=== PATIENT | female | born 1990 | race Caucasian/White ===

== ENCOUNTER 2019-05-03 19:38 | Emergency (ER) | payer OTHER ==
[2019-05-03 19:42] VITALS: TEMP 97.7; BMI 33.3
--- NOTE | 2019-05-03 19:44 | PDOC ---
Rapid Medical Evaluation Time Seen by Provider: 05/03/19 19:38 Medical Evaluation: Allergies Allergy/AdvReac Type Severity Reaction Status Date / Time No Known Drug Allergies Allergy Verified 12/26/18 04:45 05/03/19 19:39 Patient complaints of: ate chicken lettuce wrap and broke out in hives while in route to urgent care clinic, pt felt her throat closing up. Give epi im 1/r ago. now asymptomatic Patient on brief exam: speaking full sentences, no stridor/wheezing, no wheals Patient ordered for: none, observe ( 1st time given epi) Patient to proceed to the ED Discharge Disposition - Diagnosis Allergic reaction - Discharge Dispostion Disposition: AGAINST MEDICAL ADVICE Condition at time of disposition: Stable - Prescriptions Prescriptions: Diphenhydramine HCl [Benadryl -] 25 mg PO PRN #28 capsule Epinephrine [Epipen] 0.3 mg IJ PRN #1 auto.injct Loratadine [Claritin -] 10 mg PO DAILY #30 tablet predniSONE [Deltasone -] 40 mg PO DAILY 5 Days #5 tablet Ranitidine HCl [Zantac] 300 mg PO DAILY #30 tablet - [place] [facility] [place] [facility] [place] Group] - Patient Instructions Printed Discharge Instructions: DI for Anaphylaxis, DI for Adverse Drug Reaction -- Allergic Additional Instructions: You came into the ER after you experienced an allergic reaction. We gave you medications to help with the allergy. We advised you to stay in the ER for observation for 4 more hours but you said you have to leave to take care of your baby. We have explained the risks including worsening of your allergic reactions but you have decided to sign out from the emergency room against medical advice. Please make sure to schedule a follow up appointment with your primary care doctor in the next 24 to 48 hours to make sure you are getting better and being taken care of. Come back to the ER immediately if you experience any shortness of breath, throat - eye - lip - or tongue swelling, new rashes, or any other new or worsening concerns. Thank you for coming to the [facility] ER. We hope you feel better soon! Print Language: MALAWIAN - Post Discharge Activity
--- NOTE | 2019-05-03 20:00 | PDOC ---
History of Present Illness - General Chief Complaint: Allergic Reaction Stated Complaint: ALLERGIC REACTION Time Seen by Provider: 05/03/19 19:38 - History of Present Illness Initial Comments: 05/03/19 19:59 28-year-old female without comorbidities presents for evaluation after receiving epinephrine at an urgent care due to a meal which was new to her at a [place] restaurant. Past History - Past Medical History Allergies/Adverse Reactions: Allergies Allergy/AdvReac Type Severity Reaction Status Date / Time No Known Drug Allergies Allergy Verified 05/03/19 19:42 COPD: No - Suicide/Smoking/Psychosocial Hx Smoking History: Never smoked Review of Systems - Review of Systems Integumentary: Yes: Rash *Physical Exam - Vital Signs Last Vital Signs Temp Pulse Resp BP Pulse Ox 97.7 F 84 18 119/63 98 05/03/19 19:38 05/03/19 19:38 05/03/19 19:38 05/03/19 19:38 05/03/19 19:38 - Physical Exam Comments: 05/03/19 19:59 HEAD: NC/AT EYES: Conjuntiva clear Ears: Canals and TM's normal NOSE: No d/c THROAT: Moist mucous membrances, oral pharanx clear, uvula midline NECK: Supple without adenopathy CARDIAC: S1 S2 LUNGS: CTA Full and Equal breath sounds ABDOMEN: Soft NT ND MS: Full ROM in all joints without edema NEUROLOGIC: No gross sensory or motor deficits, NVID SKIN: Normal color and temperature no lesions resolving you to carry left upper extremity Medical Decision Making - Medical Decision Making 05/03/19 20:00 The receiving epinephrine intramuscularly, this patient needs to be on a monitored bed I will transfer her to the main emergency room. *DC/Admit/Observation/Transfer Diagnosis at time of Disposition: Allergic reaction - Referrals - Patient Instructions - Post Discharge Activity
[2019-05-03] MEDS ORDERED: FAMOTIDINE 20 MG/50 ML IVPB 20 MG/50 ML MG IVPB ONE (20:04)
[2019-05-03] MEDS: methylPREDNISolone NA SUCC 125 MG/2 ML VIAL IVPB ONE ×2 (20:19→20:20)
[2019-05-03] MEDS ORDERED: predniSONE 20 MG TABLET (UD) PO ONE (20:20)
[2019-05-03] MEDS ORDERED: LORATADINE 10 MG TABLET PO ONE (20:21)
[2019-05-03] MEDS ORDERED: RANITIDINE HCL 150 MG TABLET (FP) PO ONE (20:21)
--- NOTE | 2019-05-03 20:24 | PDOC ---
History of Present Illness - General Chief Complaint: Allergic Reaction Stated Complaint: ALLERGIC REACTION Time Seen by Provider: 05/03/19 19:38 History Source: Patient Exam Limitations: No Limitations - History of Present Illness Initial Comments: 28 yo obese f w no reported pmh presents to the ER after she experienced an allergic reaction earlier today. The patient was eating a chicken lettuce wrap at [facility] that had mushrooms, soy, water chestnut, chives, chicken, and a bunch of sauces at 4 pm. 5 minutes after she started eating her wrap she began experiencing diffuse itchiness on her arms, chest, back and legs. She states she had hives on her head, upper body, and arms. She also felt a tingling sensation in her throat and states she was short of breath. She waited at home for 2 hours hoping the sensations would subside but because she felt they were worsening the patient went to urgent care where she received epinephrine IM. Urgent care told the patient to proceed to the ER for observation after they administered Epi. EMS brought the patient to the ER and here she states she is asymptomatic. She denies any SOB, difficulty breathing, hives, other rashes, throat swelling, eye, lip, or tonuge swelling or any other complaints. The patient denies having any allergies to food or seasons. She states this has never happened to her before. She denies new soaps, detergents, or new outdoor exposures. PCP: Dr. Penn in [facility] PSH: None reported Social Hx: Denies smoking, drinking, or other substance usage Allergies: NKA, NKDA Past History - Past Medical History Allergies/Adverse Reactions: Allergies Allergy/AdvReac Type Severity Reaction Status Date / Time No Known Drug Allergies Allergy Verified 05/03/19 19:42 Home Medications: Ambulatory Orders Diphenhydramine HCl [Benadryl -] 25 mg PO PRN #28 capsule 05/03/19 Epinephrine [Epipen] 0.3 mg IJ PRN #1 auto.injct 05/03/19 Loratadine [Claritin -] 10 mg PO DAILY #30 tablet 05/03/19 Ranitidine HCl [Zantac] 300 mg PO DAILY #30 tablet 05/03/19 predniSONE [Deltasone -] 40 mg PO DAILY 5 Days #5 tablet 05/03/19 COPD: No - Suicide/Smoking/Psychosocial Hx Smoking History: Never smoked Review of Systems - Review of Systems Able to Perform ROS?: Yes Comments:: CONSTITUTIONAL: No fever, no chills, no fatigue EYES: No visual changes ENT: No ear pain, + sore throat CARDIOVASCULAR: No chest pain, no palpitations RESPIRATORY: No cough, + SOB GI: No abdominal pain, no nausea, no vomiting, no constipation, no diarrhea GENITOURINARY: No dysuria, no frequency, no hematuria MUSKULOSKELETAL: No backpain, no joint pain, no myalgias SKIN: + rash NEURO: No headache *Physical Exam - Vital Signs Last Vital Signs Temp Pulse Resp BP Pulse Ox 97.7 F 84 18 119/63 98 05/03/19 19:38 05/03/19 19:38 05/03/19 19:38 05/03/19 19:38 05/03/19 19:38 - Physical Exam Comments: CONSTITUTIONAL: Well-appearing; well-nourished; in no apparent distress HEAD: Normocephalic; atraumatic EYES: PERRL; EOM intact ENMT: External appears normal; normal oropharynx NECK: Supple; non-tender; no cervical lymphadenopathy CARD: Normal S1, S2; no murmurs, rubs, or gallops RESP: Normal chest excursion with respiration; breath sounds clear and equal bilaterally; no wheezes, rhonchi, or rales ABD: Soft, non-distended; non-tender; no palpable organomegaly, no palpable hernias EXT: Normal ROM in all four extremities; non-tender to palpation; distal pulses intact SKIN: Warm, dry, no rash NEURO: No focal neurological deficiencies. ED Treatment Course - LABORATORY CBC & Chemistry Diagram: 05/03/19 20:11 05/03/19 20:11 - Medications Given in the ED: ED Medications Discontinued Medications Generic Name Dose Route Start Last Admin Trade Name Freq PRN Reason Stop Dose Admin Diphenhydramine HCl 25 mg 05/03/19 20:04 05/03/19 20:19 Benadryl Injection - IVPB 05/03/19 20:05 Not Given ONCE ONE Famotidine/Sodium Chloride 20 mg in 50 mls @ 100 mls/hr 05/03/19 20:04 20:19 Pepcid 20 Mg Premixed Ivpb - IVPB 05/03/19 20:33 Not Given ONCE ONE Methylprednisolone Sodium Succinate 125 mg 05/03/19 20:04 05/03/19 20:20 Solu-Medrol - IVPB 05/03/19 20:05 Not Given ONCE ONE Medical Decision Making - Medical Decision Making 28 yo Obese F w no reported pmh or allergies presents to the ER from urgent care after experiencing a food allergic reaction where urgent care gave her Epi. patient is asymptomatic in ER and here for observation period after Epi VS: WNL DDx IBNLT: allergic reaction, less likely anaphylaxis vs angioedema. Plan: Labs, steroids, zantac, claritin, steroids, observation, re-assess. Dispo: Will send patient home after 4-6 hours is asymptomatic. Will also send scripts to her pharmacy for an epipen, steroids, benadryl, zantac and claritin. Patient has a 2 week old baby at home and states she cannot wait in the ED any longer. The patient states she wants to sign out AMA. - Will send meds to her pharmacy and sign her out AMA. *DC/Admit/Observation/Transfer Diagnosis at time of Disposition: Allergic reaction - Discharge Dispostion Disposition: AGAINST MEDICAL ADVICE Condition at time of disposition: Stable Decision to Admit order: No - Prescriptions Prescriptions: Diphenhydramine HCl [Benadryl -] 25 mg PO PRN #28 capsule Epinephrine [Epipen] 0.3 mg IJ PRN #1 auto.injct Loratadine [Claritin -] 10 mg PO DAILY #30 tablet predniSONE [Deltasone -] 40 mg PO DAILY 5 Days #5 tablet Ranitidine HCl [Zantac] 300 mg PO DAILY #30 tablet - Referrals Referrals: [facility] [place] [facility] [place] [Provider Group] - Patient Instructions Printed Discharge Instructions: DI for Anaphylaxis, DI for Adverse Drug Reaction -- Allergic Additional Instructions: You came into the ER after you experienced an allergic reaction. We gave you medications to help with the allergy. We advised you to stay in the ER for observation for 4 more hours but you said you have to leave to take care of your baby. We have explained the risks including worsening of your allergic reactions but you have decided to sign out from the emergency room against medical advice. Please make sure to schedule a follow up appointment with your primary care doctor in the next 24 to 48 hours to make sure you are getting better and being taken care of. Come back to the ER immediately if you experience any shortness of breath, throat - eye - lip - or tongue swelling, new rashes, or any other new or worsening concerns. Thank you for coming to the [facility] ER. We hope you feel better soon! Print Language: PORTUGUESE - Post Discharge Activity
[2019-05-03 20:27] LABS: BASO % 1.2 % (0-2.0); EOS % 2.1 % (0-4.5); HEMATOCRIT 41.8 % (32.4-45.2); HEMOGLOBIN 13.5 GM/dL (10.7-15.3); LYMPH % 49.8 % (8-40); MCH 23.7 pg (25.7-33.7); MCHC 32.4 g/dl (32.0-36.0); MEAN CELL VOLUME 73.3 fl (80-96); MEAN PLT VOLUME 9.3 fl (7.5-11.1); MONO % 6.9 % (3.8-10.2); PLATELET COUNT 363 K/MM3 (134-434); RDW 16.5 % (11.6-15.6); WHITE BLOOD COUNT 7.2 K/mm3 (4.0-10.0)
--- NOTE | 2019-05-03 20:42 | PDOC ---
Documentation entered by Smita Rangel SCRIBE, acting as scribe for Angelina Cruz DO. Angelina Cruz DO: This documentation has been prepared by the Claire sunshine Mackenzie, SCRIBE, under my direction and personally reviewed by me in its entirety. I confirm that the documentation accurately reflects all work , treatment, procedures, and medical decision making performed by me. Attending Attestation - Resident Resident Name: Everette Jaimes - ED Attending Attestation I have performed the following: I have examined & evaluated the patient, The case was reviewed & discussed with the resident, I agree w/resident's findings & plan - HPI HPI: The patient is a 28 year old female, with no significant PMH and no known allergies who presents to the emergency department with an allergic reaction. Patient reports shortly after eating a chicken wrap she felt itchy, her throat tightened, her tongue and face became swollen, she had trouble breathing, and a rash appeared on her chest. Urgent care delivered epinephrine [employer] CLERK and she has since been asymptomatic, and advised her to report to the ED for further observation. The patient denies headache and dizziness. Denies fever, chills, nausea, vomiting, diarrhea and constipation. Denies dysuria, frequency, urgency and hematuria. Allergies: NKA Past surgical history: None reported Social history: None reported 05/03/19 20:43 - Physicial Exam PE: Constitutional: Awake, alert, oriented. No acute distress. Head: Normocephalic. Atraumatic Eyes: PERRL. EOMI. Conjunctivae are not pale. ENT: No stridor. No tongue swelling. Mucous membranes are moist and intact. Posterior pharynx without exudates or erythema. Uvula midline. Neck: Supple. Full ROM. No lymphadenopathy. Cardiovascular: Regular rate. Regular rhythm. S1, S2 regular. Distal pulses are 2+ and symmetric. Pulmonary/Chest: No evidence of respiratory distress. Clear to auscultation bilaterally No wheezing, rales or rhonchi. Abdominal: Soft and non-distended. There is no tenderness. No rebound, guarding or rigidity. No organomegaly. No palpable masses. Good bowel sounds. Back: No CVA tenderness. Musculoskeletal: No edema. No cyanosis. No clubbing. Full range of motion in all extremities. No calf tenderness. Radial/pedal pulses are intact and 2+ bilaterally Skin: Skin is warm and dry. No petechiae. No purpura. No rashes. Neurological: Alert and oriented to person, place, and time. Cranial nerves II -XII are grossly intact. Normal speech. Strength is grossly symmetric. No sensory deficits. Psychiatric: Good eye contact. Normal interaction, affect and behavior. 05/03/19 20:43 - Medical Decision Making 05/03/19 20:39 I, Dr. Angelina Cruz, DO, attest that this document has been prepared under my direction and personally reviewed by me in its entirety. I further attest, that it accurately reflects all work, treatment, procedures and medical decision -making performed by me. 05/03/19 20:39 a/p: 28yo female with allergic reaction from Urgent Care after receiving epi at the urgent care -pt at chicken lettuce wraps at [facility] and 5 min after eating had itching, hives and a rash to her skin, and throat itching -no lip or tongue swelling -received epi im at 6:30 and sent from urgent care for observation in the ED -pt denies prior hx of allergic reactions -will add steroids, zantac, pt driving and no longer with symptoms - no benadryl at this time -no difficulty speaking, no wheezing, no stridor, tolerating secretions, no lip/ tongue/posterior pharynx swelling, no rash -lungs cta -will monitor given pt had epi for 6 hrs 05/03/19 20:42 pt is 2 weeks post delivery of 2 week old male - vaginal delivery, no complications 05/03/19 21:19 pt states she cannot stay any longer, has a 2 week old at home outpt meds sent to pharmacy pt states she wants to sign out ama discussed risks of signing out ama with epinephrine on board states she feels better and needs to leave, pt calling for an uber states she understands all risks of signing out ama pt ambulatory in the ED 05/03/19 21:20 Note: The patient insists on leaving the emergency dept and is signing out against medical advice. The patient understands the risks and complications that may result from the refusal of medical care and admission which includes and permanent disability. The patient has the mental capacity of understanding the risks of refusing care and is capable of making an informed decision. The patient was instructed to return to the emergency department should she change her mind regarding medical care or should her condition worsen. The patient signed the Against Medical Advice form.
[2019-05-03] MEDS ORDERED: predniSONE 20 MG TABLET (UD) ONE (20:47)
[2019-05-03] MEDS ORDERED: RANITIDINE HCL 150 MG TABLET (FP) ONE (20:47)
[2019-05-03 20:52] LABS: ALBUMIN 3.8 g/dl (3.4-5.0); BILIRUBIN,TOTAL 0.4 mg/dL (0.2-1); BLOOD UREA NITROGEN 15.5 mg/dL (7-18); CALCIUM 8.8 mg/dL (8.5-10.1); POTASSIUM 4.2 mmol/L (3.5-5.1); TOT PROT 7.6 g/dl (6.4-8.2)
[2019-05-03 21:12] VITALS: BP 109/72; PULSE 85
== END 2019-05-03 21:46 | disposition left against medical advice (07) ==
LOC: JER 19:38
PROC: 3E033GC Introduction of Other Therapeutic Substance into Peripheral Vein, Percutaneous Approach (ICD-10-PCS; principal; 2019-05-03)
PROC: 3E033GC Introduction of Other Therapeutic Substance into Peripheral Vein, Percutaneous Approach (ICD-10-PCS; 2019-05-03)
PROC: 3E0333Z Introduction of Anti-inflammatory into Peripheral Vein, Percutaneous Approach (ICD-10-PCS; 2019-05-03)
DX: T78.1XXA Other adverse food reactions, not elsewhere classified, initial encounter (principal); L50.0 Allergic urticaria; R07.0 Pain in throat; X58.XXXA Exposure to other specified factors, initial encounter
CPT/HCPCS: 36415; 80053; 85025; 96365; 96375; 99283-25

== ENCOUNTER 2019-10-11 16:11 | Emergency (ER) | payer OTHER ==
[2019-10-11 16:38] VITALS: BP 118/72; PULSE 96; TEMP 98; BMI 32.8
[2019-10-11] MEDS ORDERED: FLUORESCEIN NA 1 EA STRIP OD ONE (17:16)
[2019-10-11] MEDS ORDERED: TETRACAINE 0.5% HCL 0.6ML DROPPER.BOTTLE OD ONE (17:16)
[2019-10-11] MEDS ORDERED: FLUORESCEIN NA 1 EA STRIP ONE (17:17)
[2019-10-11] MEDS ORDERED: TETRACAINE 0.5% OPHTH SOLN 2 ML BOTTLE ONE (17:17)
--- NOTE | 2019-10-11 17:38 | PDOC ---
History of Present Illness - General Chief Complaint: Eye Problem Stated Complaint: PINK Time Seen by Provider: 10/11/19 16:45 History Source: Patient Exam Limitations: No Limitations Past History - Travel Traveled outside of the country in the last 30 days: No Close contact w/someone who was outside of country & ill: No - Past Medical History Allergies/Adverse Reactions: Allergies Allergy/AdvReac Type Severity Reaction Status Date / Time No Known Drug Allergies Allergy Verified 05/03/19 19:42 Home Medications: Ambulatory Orders Diphenhydramine HCl [Benadryl -] 25 mg PO PRN #28 capsule 05/03/19 Epinephrine [Epipen] 0.3 mg IJ PRN #1 auto.injct 05/03/19 Loratadine [Claritin -] 10 mg PO DAILY #30 tablet 05/03/19 Ranitidine HCl [Zantac] 300 mg PO DAILY #30 tablet 05/03/19 predniSONE [Deltasone -] 40 mg PO DAILY 5 Days #5 tablet 05/03/19 Prednisolone 0.12% Ophthalmic [Pred Mild 0.12% -] 1 drop OP BID #1 bottle Valacyclovir HCl [Valtrex -] 1,000 mg PO TID #21 tablet 10/11/19 COPD: No - Psycho Social/Smoking Cessation Hx Smoking History: Never smoked Have you smoked in the past 12 months: No Information on smoking cessation initiated: No Hx Alcohol Use: No Drug/Substance Use Hx: No Review of Systems - Review of Systems Able to Perform ROS?: Yes Comments:: 10/11/19 17:27 CONSTITUTIONAL: Absent: fever, chills, diaphoresis, generalized weakness, malaise, loss of appetite HEENT: Present: Eye redness, pain. Absent: rhinorrhea, nasal congestion, throat pain, throat swelling, difficulty swallowing, mouth swelling, ear pain, visual changes SKIN: Absent: rash, itching, pallor NEUROLOGIC: Absent: headache, focal weakness or paresthesias, dizziness, unsteady gait, seizure, mental status changes, bladder or bowel incontinence PSYCHIATRIC: Absent: anxiety, depression, suicidal or homicidal ideation, hallucinations. Is the patient limited Amharic proficient: No *Physical Exam - Vital Signs Last Vital Signs Temp Pulse Resp BP Pulse Ox 98.0 F 96 H 18 118/72 99 10/11/19 16:15 10/11/19 16:15 10/11/19 16:15 10/11/19 16:15 10/11/19 16:15 - Physical Exam Comments: 10/11/19 18:02 GENERAL: The patient is awake, alert, and fully oriented, in no acute distress. HEAD: Normal with no signs of trauma. EYES: Pupils equal, round and reactive to light, extraocular movements intact, sclera anicteric, left conjunctiva is erythematous laterally, vesicular lesion noted at the rim of the iris and conjunctiva. EXTREMITIES: Normal range of motion, no edema. NEUROLOGICAL: Normal speech, normal gait. PSYCH: Normal mood, normal affect. SKIN: Warm, Dry, normal turgor, no rashes or lesions noted. Medical Decision Making - Medical Decision Making 10/11/19 18:04 The patient is a 29-year-old female with past medical history of herpetic nicol/herpes simplex of the eye, presents to the ER today with left eye pain for 3 days. She states that she is noticed a bump under the eye. She states is very similar to when she had herpes simplex of the eye last year and was treated with Valtrex and ophthalmic steroids. She states that her eye is very painful and sensitive to light. She does report some blurred vision. Denies fevers, chills, rash, double vision. A/P: Her B simplex of the eye On exam patient with a vesicular lesion at the 5:00 area between the iris and sclera. Approximately 1 mm in size. Associated conjunctivitis Given history we will treat with Valtrex thousand milligrams 3 times daily and low-dose prednisolone ophthalmic drops. Instructed patient that she needs to see ophthalmology tomorrow. Failing to follow-up with ophthalmology could result in blindness. Patient is aware of the severity of her condition. 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 Discharge home I discussed the physical exam findings, ancillary test results and final diagnoses with the patient. I answered all of the patient's questions. The patient was satisfied with the care received and felt comfortable with the discharge plan and treatment plan. The Patient agrees to follow up with the primary care physician/specialist within 24-72 hours. Return precautions were given. Discharge - Discharge Information Problems reviewed: Yes Clinical Impression/Diagnosis: Herpes simplex of eye Condition: Stable Disposition: HOME - Admission No - Additional Discharge Information Prescriptions: Prednisolone 0.12% Ophthalmic [Pred Mild 0.12% -] 1 drop OP BID #1 bottle Valacyclovir HCl [Valtrex -] 1,000 mg PO TID #21 tablet - Follow up/Referral Referrals: Jose Saxena MD [Staff Physician] - - Patient Discharge Instructions Additional Instructions: You were evaluated for your eye pain today. It is most likely caused by the herpes simplex virus. Please take the Valtrex 3 times a day as directed. Take the entire dose. Use the eyedrops twice a day to help with the pain. Please follow-up with your asbestos siding installer tomorrow. It is very important that you follow-up with ophthalmology as untreated herpes simplex can lead to blindness. Return to the ER for worsening pain, visual changes, lightheadedness, headache, earache or if you have any changes in your symptoms. - Post Discharge Activity Work/Back to School Note: Back to Work
== END 2019-10-11 18:09 | disposition home or self-care (01) ==
LOC: JERFT 16:11
DX: B00.50 Herpesviral ocular disease, unspecified (principal)
CPT/HCPCS: 99281-25

== ENCOUNTER 2019-11-21 11:57 | Emergency (ER) | payer OTHER ==
[2019-11-21 12:01] VITALS: BP 148/90; PULSE 88; TEMP 98; BMI 30.9
[2019-11-21] MEDS ORDERED: TETRACAINE 0.5% HCL 0.6ML DROPPER.BOTTLE OD ONE (12:43)
[2019-11-21] MEDS ORDERED: FLUORESCEIN NA 1 EA STRIP OD ONE (12:43)
--- NOTE | 2019-11-21 12:48 | PDOC ---
History of Present Illness - General Chief Complaint: Eye Problem Stated Complaint: EYE PROBLEM Time Seen by Provider: 11/21/19 12:23 - History of Present Illness Initial Comments: 11/21/19 12:46 CHIEF COMPLAINT: eye pain/redness HISTORY OF PRESENT ILLNESS: 29 yo F with hx of herpetic nicol/herpes simplex of the eye presents to the ER today with left eye pain x 1 week. Patient was treated in this ED 2 months ago with Valtrex and opthalmic steroids and states she did f/u with ophthalmology and "was told the same thing", but the symptoms recurred 1 week ago. She states that her eye is very painful and sensitive to light. Denies fevers, chills, rash, double vision. No recent travel or sick contacts. PAST MEDICAL HISTORY: Denies past medical history FAMILY HISTORY: Denies SOCIAL HISTORY:Denies tobacco, alcohol, illicit drug use. SURGICAL HISTORY: Denies ALLERGIES: No known drug allergies REVIEW OF SYSTEMS General/Constitutional: Denies fever or chills. Denies weakness, weight change. HEENT: Redness to L eye x 1 week. Denies change in vision. Denies ear pain or discharge. Denies sore throat. Cardiovascular: Denies chest pain or shortness of breath. Respiratory: Denies cough, wheezing, or hemoptysis. Gastrointestinal: Denies nausea, vomiting, diarrhea or constipation. Denies rectal bleeding. Genitourinary: Denies dysuria, frequency, or change in urination. Musculoskeletal: Denies joint or muscle swelling or pain. Denies neck or back pain. Skin and breasts: Denies rash or easy bruising. Neurologic: Denies headache, vertigo, loss of consciousness, or loss of sensation. Psychiatric: Denies depression or anxiety. PHYSICAL EXAM General Appearance: Well-appearing, appropriately dressed. No apparent distress , no intoxication. HEENT: Injected sclera to L eye. EOMI, PERRLA, normal ENT inspection, normal voice, TMs normal, pharynx normal. No conjunctival pallor. No photophobia, scleral icterus. Neck: Supple. Trachea midline. No tenderness, rigidity, carotid bruit, stridor , lymphadenopathy, or thyromegaly. Respiratory/Chest: Lungs CTAB. No shortness of breath, chest tenderness, respiratory distress, accessory muscle use. No crackles, rales, rhonchi, stridor , wheezing, dullness Cardiovascular: RRR. S1, S2. No JVD, murmur, bradycardia, tachycardia. Vascular Pulses: Dorsalis-Pedis (R): 2+, Dorsalis-Pedis (L): 2+ Gastrointestinal/Abdominal: Normal bowel sounds. Abdomen soft, non-distended. No tenderness or rebound tenderness. No organomegaly, pulsatile mass, guarding , hernia, hepatomegaly, splenomegaly. Lymphatic: No adenopathy, tenderness. Musculoskeletal/Extremities: Normal inspection. FROM of all extremities, normal capillary refill. Pelvis Stable. No CVA tenderness. No tenderness to extremities, pedal edema, swelling, erythema or deformity. Integumentary: Appropriate color, dry, warm. No cyanosis, erythema, jaundice or rash Neurologic: quality assurance coordinator II-XII intact. Fully oriented, alert. Appropriate mood/affect. Motor strength 5/5. No appreciable EOM palsy, facial droop or sensory deficit. 11/21/19 13:06 11/21/19 13:56 Past History - Past Medical History Allergies/Adverse Reactions: Allergies Allergy/AdvReac Type Severity Reaction Status Date / Time No Known Drug Allergies Allergy Verified 11/21/19 12:01 Home Medications: Ambulatory Orders Diphenhydramine HCl [Benadryl -] 25 mg PO PRN #28 capsule 05/03/19 Epinephrine [Epipen] 0.3 mg IJ PRN #1 auto.injct 05/03/19 Loratadine [Claritin -] 10 mg PO DAILY #30 tablet 05/03/19 Ranitidine HCl [Zantac] 300 mg PO DAILY #30 tablet 05/03/19 predniSONE [Deltasone -] 40 mg PO DAILY 5 Days #5 tablet 05/03/19 Prednisolone 0.12% Ophthalmic [Pred Mild 0.12% -] 1 drop OP BID #1 bottle Valacyclovir HCl [Valtrex -] 1,000 mg PO TID #21 tablet 11/21/19 COPD: No - Psycho Social/Smoking Cessation Hx Smoking History: Never smoked Have you smoked in the past 12 months: No Hx Alcohol Use: No Drug/Substance Use Hx: No *Physical Exam - Vital Signs Last Vital Signs Temp Pulse Resp BP Pulse Ox 98 F 88 18 148/90 99 11/21/19 11:58 11/21/19 11:58 11/21/19 11:58 11/21/19 11:58 11/21/19 11:58 Medical Decision Making - Medical Decision Making 11/21/19 13:56 29 yo F with hx of herpetic nicol/herpes simplex of the eye presents to the ER today with left eye pain x 1 week. 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 Valtrex rx sent to pharm, patient states she still has prenisolone ophthalmic drops. Advised patient to take medication as prescribed and that she MUST follow up with ophthalmology within 48 hours. Advised patient of signs and symptoms for return to ED. Patient verbalized understanding and agrees to plan. Discharge - Discharge Information Problems reviewed: Yes Clinical Impression/Diagnosis: Herpes simplex of eye Condition: Stable Disposition: HOME - Admission No - Additional Discharge Information Prescriptions: Valacyclovir HCl [Valtrex -] 1,000 mg PO TID #21 tablet - Follow up/Referral Referrals: Juan Carlos Bruner MD [Staff Physician] - Jose Saxena MD [Staff Physician] - - Patient Discharge Instructions Additional Instructions: Please take medications as prescribed. As discussed, you must follow-up with ophthalmology within the next 2 days for further evaluation and management of your symptoms. If you develop any new or worsening symptoms including loss of vision to your eye, return to the ER immediately. - Post Discharge Activity
[2019-11-21] MEDS ORDERED: TETRACAINE 0.5% OPHTH SOLN 2 ML BOTTLE ONE (12:58)
== END 2019-11-21 13:42 | disposition home or self-care (01) ==
LOC: JERFT 11:57
DX: B00.59 Other herpesviral disease of eye (principal)
CPT/HCPCS: 99282-25

== ENCOUNTER 2019-11-29 02:01 | Emergency (ER) | payer OTHER ==
[2019-11-29 02:31] VITALS: BP 133/95; PULSE 83; TEMP 98; BMI 31.8
[2019-11-29] MEDS ORDERED: ACETAMINOPHEN 325 MG TABLET (FP) PO ONE (04:11)
--- NOTE | 2019-11-29 04:11 | PDOC ---
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 The patient states that she's been around people with flu-like symptoms and woke up this morning with bodyaches and cold sweats. She denies fevers, nausea, vomiting, abd pain, CP, SOB. Past History - Past Medical History Allergies/Adverse Reactions: Allergies Allergy/AdvReac Type Severity Reaction Status Date / Time No Known Drug Allergies Allergy Verified 11/29/19 02:28 Home Medications: Ambulatory Orders Diphenhydramine HCl [Benadryl -] 25 mg PO PRN #28 capsule 05/03/19 Epinephrine [Epipen] 0.3 mg IJ PRN #1 auto.injct 05/03/19 Loratadine [Claritin -] 10 mg PO DAILY #30 tablet 05/03/19 Ranitidine HCl [Zantac] 300 mg PO DAILY #30 tablet 05/03/19 Prednisolone 0.12% Ophthalmic [Pred Mild 0.12% -] 1 drop OP BID #1 bottle COPD: No - Immunization History Immunization Up to Date: Yes - Psycho Social/Smoking Cessation Hx Smoking History: Never smoked Have you smoked in the past 12 months: No Information on smoking cessation initiated: No Hx Alcohol Use: No Drug/Substance Use Hx: No Review of Systems - Review of Systems Able to Perform ROS?: Yes Comments:: 11/29/19 04:09 GENERAL/CONSTITUTIONAL: No fever or chills. No weakness. HEAD, EYES, EARS, NOSE AND THROAT: No change in vision. No ear pain or discharge. No sore throat. CARDIOVASCULAR: No chest pain, palpitations, or lightheadedness. RESPIRATORY: No cough, wheezing, shortness of breath, or hemoptysis. GASTROINTESTINAL: No abdominal pain, nausea, vomiting, diarrhea, or constipation. GENITOURINARY: No dysuria, frequency, hematuria, or change in urination. MUSCULOSKELETAL: + for bodyaches. No neck or back pain. SKIN: No rash or lesions. NEUROLOGIC: No headache, numbness, tingling, focal weakness, loss of consciousness, or change in strength/sensation. Is the patient limited Tongan proficient: No *Physical Exam - Vital Signs Last Vital Signs Temp Pulse Resp BP Pulse Ox 98.0 F 83 20 133/95 99 11/29/19 02:28 11/29/19 02:28 11/29/19 02:28 11/29/19 02:28 11/29/19 02:28 - Physical Exam 11/29/19 04:10 GENERAL: Well developed, well nourished. Awake and alert. No acute distress. HEENT: Normocephalic, atraumatic. Hearing grossly normal. Moist mucous membranes. PERRLA, EOMI. L conjunctival injeciton. NECK: Supple. Full ROM. No JVD. CARDIOVASCULAR: Regular rate and rhythm. No murmurs, rubs, or gallops. PULMONARY: No evidence of respiratory distress. Lungs clear to auscultation bilaterally. No wheezing, rales or rhonchi. ABDOMINAL: Soft. Non-tender. Non-distended. No rebound or guarding. GENITOURINARY: No CVA tenderness bilaterally. MUSCULOSKELETAL: Normal range of motion at all joints. No bony deformities or tenderness. EXTREMITIES: No cyanosis. No clubbing. No edema. No calf tenderness or swelling. SKIN: Warm and dry. Normal capillary refill. No rashes. No jaundice. NEUROLOGICAL: Alert, awake, appropriate. Cranial nerves 2-12 intact. Normal speech. Gait is normal without ataxia. PSYCHIATRIC: Cooperative. Good eye contact. Appropriate mood and affect. Medical Decision Making - Medical Decision Making 11/29/19 04:10 29F who presents with bodyaches. LMP finished yesterday. Vitals stable. PE unremarkable except for currently treated HSV of L eye. Will give tylenol and d/ c with PCP f/u. Discharge - Discharge Information Problems reviewed: Yes Clinical Impression/Diagnosis: Myalgia Condition: Good Disposition: HOME - Admission No - Follow up/Referral - Patient Discharge Instructions Patient Printed Discharge Instructions: How to Avoid a Cold or Flu Additional Instructions: Your ER visit is not complete until your follow up with your primary care physician. Please follow up with your primary care physician in 1-2 days. Please return to the ER if you have any signs or symptoms of chest pain, shortness of breath, uncontrollable fever, chills, nausea, vomiting, numbness, tingling, or weakness in any part of your body, changes in vision, or slurred speech. Please return to the ER if symptoms persist, worsen, or new symptoms arise. - Post Discharge Activity
[2019-11-29] MEDS ORDERED: ACETAMINOPHEN 325 MG TABLET (FP) ONE (04:19)
--- NOTE | 2019-11-29 05:06 | PDOC ---
Attending Attestation - Resident Resident Name: RuddyLucas sosa - ED Attending Attestation I have performed the following: I have examined & evaluated the patient, The case was reviewed & discussed with the resident, I agree w/resident's findings & plan, Exceptions are as noted - HPI HPI: 11/29/19 05:05 See resident HPI - Physicial Exam PE: 11/29/19 05:05 Agree with resident exam - Medical Decision Making 11/29/19 05:05 29F here with bodyaches, no f/c, +sick contacts in household, LMP finished yesterday Possible beginning of viral illness, but objectively symptom free f/u pcp as needed dc
== END 2019-11-29 05:16 | disposition home or self-care (01) ==
LOC: JER 02:01
DX: M79.10 Myalgia, unspecified site (principal)
CPT/HCPCS: 99281-25

== ENCOUNTER 2021-02-12 21:24 | Emergency (ER) | payer OTHER ==
[2021-02-12 21:31] VITALS: TEMP 98; BMI 31.4
[2021-02-12] MEDS ORDERED: SODIUM CHLORIDE 0.9% 500 ML INFUS.BAG IV ONE (21:40)
[2021-02-12] MEDS ORDERED: FAMOTIDINE 20 MG/50 ML IVPB 20 MG/50 ML MG IVPB ONE ×2 (21:41→21:43)
[2021-02-12] MEDS ORDERED: methylPREDNISolone NA SUCC 125 MG/2 ML VIAL IVPB ONE (21:43)
[2021-02-12] MEDS ORDERED: methylPREDNISolone NA SUCC 125 MG/2 ML VIAL ONE (21:47)
[2021-02-12 23:02] VITALS: BP 100/62; PULSE 93
== END 2021-02-13 00:21 | disposition home or self-care (01) ==
LOC: JER 21:24
PROC: 3E033GC Introduction of Other Therapeutic Substance into Peripheral Vein, Percutaneous Approach (ICD-10-PCS; principal; 2021-02-12)
PROC: 3E033GC Introduction of Other Therapeutic Substance into Peripheral Vein, Percutaneous Approach (ICD-10-PCS; 2021-02-12)
PROC: 3E033GC Introduction of Other Therapeutic Substance into Peripheral Vein, Percutaneous Approach (ICD-10-PCS; 2021-02-12)
DX: T78.40XA Allergy, unspecified, initial encounter (principal)
CPT/HCPCS: 99284-25

== ENCOUNTER 2021-10-17 15:03 | Emergency (ER) | payer OTHER ==
[2021-10-17 15:09] VITALS: BP 119/81; PULSE 98; TEMP 97.9; BMI 28.3
[2021-10-17] MEDS ORDERED: IBUPROFEN 400 MG TABLET (FP) PO ONE ×2 (16:01→16:04)
== END 2021-10-17 16:17 | disposition home or self-care (01) ==
LOC: JERFT 15:03 → JER 15:03 → JERFT 16:17
DX: H15.102 Unspecified episcleritis, left eye (principal)
CPT/HCPCS: 99283-25

== ENCOUNTER 2022-09-17 07:40 | Emergency (ER) | payer OTHER ==
[2022-09-17 08:14] VITALS: BP 122/75; PULSE 93; RESP 18; TEMP 98.3; BMI 25.7
[2022-09-17] MEDS ORDERED: KETOROLAC TROMETHAMINE 30 MG/1 ML VIAL IM ONE (08:35)
[2022-09-17] MEDS ORDERED: KETOROLAC TROMETHAMINE 30 MG/1 ML VIAL ONE (09:15)
== END 2022-09-17 09:29 | disposition home or self-care (01) ==
LOC: JERFT 07:40 → JER 07:40 → JERFT 09:29
PROC: 3E0233Z Introduction of Anti-inflammatory into Muscle, Percutaneous Approach (ICD-10-PCS; principal; 2022-09-17)
DX: H00.015 Hordeolum externum left lower eyelid (principal)
CPT/HCPCS: 96372; 99284-25